=== PATIENT | female | born 1960 | race Caucasian/White ===

== ENCOUNTER 2022-09-14 08:36 | Outpatient (CLI) | payer OTHER, SELFPAY | END 2022-09-14 08:37 | disposition home or self-care (01) | LOC: OP CLINIC 08:39 | PROVIDERS: PCP Family Medicine; Visit Provider Surgery | DX: Z12.11 Encounter for screening for malignant neoplasm of colon (principal); K63.5 Polyp of colon; K64.8 Other hemorrhoids; K64.4 Residual hemorrhoidal skin tags | CPT/HCPCS: 45385; 88305; 99153; J1200; J2250; J2405; J3010 ==

== ENCOUNTER 2022-09-28 14:46 | Outpatient (CLI) | payer OTHER, SELFPAY ==
--- NOTE | 2022-09-28 15:00 | CRLHL7_ITS ---
For Patients: As a result of the Century Cures Act, medical imaging exams and procedure reports are released immediately into your electronic medical record. You may view this report before your referring provider. If you have questions, please contact your health care provider. BILATERAL SCREENING MAMMOGRAM WITH COMPUTER-AIDED DETECTION AND TOMOSYNTHESIS TECHNIQUE: CC and MLO views were obtained. These mammographic images have been obtained using full-field digital technique. These mammographic images were interpreted with the benefit of computer-aided detection. Breast Tomosynthesis was used in this interpretation. COMPARISON FILM: No comparison available (01/31/2011 re-sent). FINDINGS: There are scattered areas of fibroglandular density IMPRESSION: There is no radiographic evidence for malignancy. ASSESSMENT: BI-RADS Category 2: Benign RECOMMENDATION: Routine screening mammogram in 1 year. A lay language report of this examination will be provided to the patient. Ronni Stallworth M.D. Diagnostic Radiologist [email or web address] LIBERTY/delonte be/Dictated by: Ronni Stallworth MD @ 10/19/2022 9:29:00 AM (Electronically Signed)
== END 2022-09-28 14:47 | disposition home or self-care (01) ==
LOC: MAMMO 14:47
PROVIDERS: PCP Family Medicine; Visit Provider Family Medicine
DX: Z12.31 Encounter for screening mammogram for malignant neoplasm of breast (principal)
CPT/HCPCS: 77063; 77067

== ENCOUNTER 2022-11-07 08:48 | Outpatient (CLI) | payer OTHER, SELFPAY ==
[2022-11-07 13:56] LABS: Chloride* 106 mmol/L (96-114); Sodium* 140 mmol/L (135-149)
[2022-11-07 13:59] LABS: Blood Urea Nitrogen* 16 mg/dL (7-30); Carbon Dioxide* 28 mmol/L (20-32); Cholesterol* 317 mg/dL (90-199); Creatinine* 0.6 mg/dL (0.5-1.5); Estimated Glomerular Filt Rate 103 ml/min; Glucose* 93 mg/dL (60-115); Triglycerides* 96 mg/dL (40-149)
[2022-11-07 14:00] LABS: Calcium* 9.5 mg/dL (8.4-10.6); HDL Cholesterol* 95 mg/dL (>=50); LDL Cholesterol Calculated 203 mg/dL (<100)
== END 2022-11-07 08:49 | disposition home or self-care (01) ==
PROVIDERS: PCP Family Medicine; Visit Provider Family Medicine
DX: E78.5 Hyperlipidemia, unspecified (principal); Z13.1 Encounter for screening for diabetes mellitus
CPT/HCPCS: 80048; 80061

== ENCOUNTER 2023-11-07 08:34 | Outpatient (CLI) | payer OTHER, SELFPAY | END 2023-11-07 08:35 | disposition home or self-care (01) | PROVIDERS: PCP Family Medicine; Visit Provider Family Medicine | DX: Z00.00 Encounter for general adult medical examination without abnormal findings (principal); E78.5 Hyperlipidemia, unspecified; Z13.1 Encounter for screening for diabetes mellitus; R07.9 Chest pain, unspecified | CPT/HCPCS: 80048; 80061 ==